=== PATIENT | male | born 1995 | race African-American/Black ===

== ENCOUNTER 2019-07-25 10:01 | Emergency (ER) | payer MEDICAID ==
[~2019-07-25] VITALS: Ht 188 cm; Wt 83.5 kg
[2019-07-25 13:22] LABS: microscopic required? NO
[2019-07-25 13:33] LABS: urine erythrocyte NEGATIVE (NEGATIVE)
[2019-07-25 14:23] VITALS: BP 137/81
== END 2019-07-25 14:23 | disposition home or self-care (01) ==
LOC: ED 10:01
DX: N34.2 Other urethritis (principal)
CPT/HCPCS: 87491; 87591; J0696